=== PATIENT | male | born 1965 | race Two or more races ===

== ENCOUNTER 2017-05-09 07:57 | Emergency (ER) | payer MEDICAID ==
[~2017-05-09] VITALS: Ht 185.4 cm; Wt 69.0 kg
[~2017-05-09 07:57] MED LIST: GABA-532 PO; HYDR-565 PO; MUPI1OIN8 BOTHNARES; VENL150T3 PO
[2017-05-09 09:40] LABS: BASOPHILS % (AUTO) 0.4 % (0-1); EOSINOPHILS # (AUTO) 0.1 X10'3 (0-0.9); EOSINOPHILS % (AUTO) 1.3 % (0-6); HEMATOCRIT 37.1 % (42.0-52.0); HEMOGLOBIN 12.3 g/dl (14.0-17.9); LYMPHOCYTES # (AUTO) 1.7 X10'3 (1.1-4.8); LYMPHOCYTES % (AUTO) 17.1 % (21-51); MEAN CORPUSCULAR HEMOGLOBIN 29.9 PG (27.0-31.0); MEAN CORPUSCULAR HGB CONC 33.2 % (33.0-36.5); MEAN PLATELET VOLUME 8.3 FL (7.4-10.4); MONOCYTES % (AUTO) 9.8 % (2-12); NEUTROPHILS # (AUTO) 7.2 X10'3 (1.8-7.7); NEUTROPHILS % (AUTO) 71.4 % (42-75); PLATELET COUNT 191 X10'3 (140-440); RED BLOOD COUNT 4.12 X10'6 (4.70-6.10); WHITE BLOOD COUNT 10.1 X10'3 (4.5-11.0)
[2017-05-09] MEDS ORDERED: DOXY100C2 PO (10:17)
[2017-05-09] MEDS ORDERED: TRAM50TA2 PO (10:17)
[2017-05-09 10:45] VITALS: BP 105/73
== END 2017-05-09 11:02 | disposition home or self-care (01) ==
LOC: ER 07:58
DX: L03.115 Cellulitis of right lower limb (principal); M25.571 Pain in right ankle and joints of right foot; R60.9 Edema, unspecified; F15.90 Other stimulant use, unspecified, uncomplicated; Z60.2 Problems related to living alone; Z56.0 Unemployment, unspecified; Z98.890 Other specified postprocedural states; Z88.0 Allergy status to penicillin; Z59.0 Homelessness
CPT/HCPCS: 36415; 73610; 85025; 93971; 99285

== ENCOUNTER 2017-05-14 23:26 | Emergency (ER) | payer MEDICAID ==
[~2017-05-14] VITALS: Ht 190.5 cm; Wt 71.0 kg
[~2017-05-14 23:26] MED LIST changes: +DOXY100C2 PO; +TRAM50TA2 PO
[2017-05-15] MEDS ORDERED: CLIN300C3 PO (00:12)
[2017-05-15 00:22] VITALS: BP 149/96
== END 2017-05-15 00:22 | disposition home or self-care (01) ==
LOC: ER 23:26
DX: L03.115 Cellulitis of right lower limb (principal); G89.29 Other chronic pain; F15.10 Other stimulant abuse, uncomplicated; Z60.2 Problems related to living alone; Z56.0 Unemployment, unspecified; Z88.0 Allergy status to penicillin; Z59.0 Homelessness
CPT/HCPCS: 99283

== ENCOUNTER 2017-07-25 05:52 | Emergency (ER) | payer MEDICAID ==
[~2017-07-25] VITALS: Ht 185.4 cm; Wt 79.5 kg
[~2017-07-25 05:52] MED LIST changes: -DOXY100C2 PO; +LEVO750T21 PO; -TRAM50TA2 PO
[2017-07-25] MEDS ORDERED: naproxen 500mg tablet PO ONE (06:30)
[2017-07-25] MEDS ORDERED: azithromycin 250mg tablet PO ONE (06:30)
[2017-07-25] MEDS ORDERED: AZIT250T PO (06:40)
[2017-07-25 06:47] VITALS: BP 130/66
== END 2017-07-25 06:48 | disposition home or self-care (01) ==
LOC: ER 05:54
DX: J18.9 Pneumonia, unspecified organism (principal); J06.9 Acute upper respiratory infection, unspecified; G89.29 Other chronic pain; F17.200 Nicotine dependence, unspecified, uncomplicated; F15.10 Other stimulant abuse, uncomplicated; F11.10 Opioid abuse, uncomplicated; Z60.2 Problems related to living alone; Z59.0 Homelessness; Z88.0 Allergy status to penicillin; Z79.899 Other long term (current) drug therapy
CPT/HCPCS: 99283

== ENCOUNTER 2017-08-11 14:17 | Emergency (ER) | payer MEDICAID ==
[~2017-08-11] VITALS: Ht 185.4 cm; Wt 70.0 kg
[~2017-08-11 14:17] MED LIST changes: +CEPH-572 PO; -LEVO750T21 PO
[2017-08-11 14:26] VITALS: BP 120/79
== END 2017-08-11 17:31 | disposition left against medical advice (07) ==
LOC: ER 14:18
DX: M79.644 Pain in right finger(s) (principal); Z53.21 Procedure and treatment not carried out due to patient leaving prior to being seen by health care provider

== ENCOUNTER 2017-12-30 01:38 | Emergency (ER) | payer MEDICAID ==
[~2017-12-30] VITALS: Ht 185.4 cm; Wt 71.7 kg
[~2017-12-30 01:38] MED LIST changes: -CEPH-572 PO
[2017-12-30 01:44] VITALS: BP 116/82
== END 2017-12-30 02:24 | disposition home or self-care (01) ==
LOC: ER 01:38
DX: R42 Dizziness and giddiness (principal); G89.29 Other chronic pain; F15.90 Other stimulant use, unspecified, uncomplicated; F11.90 Opioid use, unspecified, uncomplicated; Z88.0 Allergy status to penicillin; Z79.899 Other long term (current) drug therapy; Z60.2 Problems related to living alone; Z59.0 Homelessness
CPT/HCPCS: 99281

== ENCOUNTER 2018-01-20 08:06 | Emergency (ER) | payer MEDICAID ==
[~2018-01-20] VITALS: Ht 185.4 cm; Wt 68.0 kg
[~2018-01-20 08:06] MED LIST changes: +HYDR-4353 PO; -HYDR-565 PO
[2018-01-20] MEDS ORDERED: LORazepam 2 mg/ml vial IV ONE (08:20)
[2018-01-20] MEDS ORDERED: normal saline 1000ML IV soln IVB ONE (08:20)
[2018-01-20] MEDS ORDERED: LORazepam 2 mg/ml vial IM ONE (08:35)
[2018-01-20 08:57] LABS: HEMATOCRIT 38.8 % (42.0-52.0); HEMOGLOBIN 13.1 g/dl (14.0-17.9); MEAN CORPUSCULAR HEMOGLOBIN 30.5 PG (27.0-31.0); MEAN CORPUSCULAR HGB CONC 33.8 % (33.0-36.5); MEAN CORPUSCULAR VOLUME 90.2 FL (78-98); MEAN PLATELET VOLUME 8.9 FL (7.4-10.4); PLATELET COUNT 221 X10'3 (140-440); RED CELL DISTRIBUTION WIDTH 13.5 % (11.5-14.5); WHITE BLOOD COUNT 15.9 X10'3 (4.5-11.0)
[2018-01-20 09:06] LABS: ALANINE AMINOTRANSFERASE 34 U/L (12-78); ALBUMIN 3.3 G/DL (3.4-5.0); ALBUMIN/GLOBULIN RATIO 0.7 (1.1-1.5); ALKALINE PHOSPHATASE 65 IU/L (46-116); ANION GAP 13 (8-16); ASPARTATE AMINO TRANSFERASE 23 U/L (10-37); BILIRUBIN,TOTAL 0.8 MG/DL (0.1-1.0); BLOOD UREA NITROGEN 24 MG/DL (7-18); BUN/CREATININE RATIO 26.7 (5.4-32.0); CALCIUM 9.1 MG/DL (8.5-10.1); CHLORIDE 104 MMOL/L (99-107); ETHANOL < 0.010 GM/DL (0.0-0.010); GLUCOSE 107 MG/DL (70-104); POTASSIUM 4.6 MMOL/L (3.5-5.1); SODIUM 142 MMOL/L (135-145); TOTAL CARBON DIOXIDE 25.2 MMOL/L (24-32); TOTAL PROTEIN 8.2 G/DL (6.4-8.2); eGFR 88 ML/MIN
[2018-01-20 09:26] LABS: CLARITY,URINE CLEAR (Clear); COLOR,URINE YELLOW (Yellow); GLUCOSE, URINE NEGATIVE (Neg); KETONES,URINE 15 mg/dl (Neg); LEUKOCYTE ESTERASE ,URINE NEGATIVE (Neg); NITRITES, URINE NEGATIVE (Neg); OCCULT BLOOD,URINE NEGATIVE (Neg); PROTEIN,URINE TRACE mg/dl (Neg)
[2018-01-20 09:32] LABS: URINE AMPHETAMINE SCREEN POSITIVE (Neg); URINE BARBITUATE SCREEN NEGATIVE (Neg); URINE BENZODIAZEPINES SCREEN NEGATIVE (Neg); URINE CANNABINOID SCREEN POSITIVE (Neg); URINE COCAINE SCREEN NEGATIVE (Neg); URINE METHADONE SCREEN NEGATIVE (Neg); URINE OPIATE SCREEN POSITIVE (Neg); URINE PHENCYCLIDINE SCREEN NEGATIVE (Neg)
[2018-01-20 09:46] LABS: UA COLLECTION TYPE FOLEY CATH
[2018-01-20 09:48] LABS: HYALINE CASTS 0-3 /LPF (NEGATIVE); MUCUS STRANDS MODERATE /LPF (Neg); SQUAMOUS EPITHELIAL CELL,UR FEW /LPF (FEW)
[2018-01-20 09:50] LABS: BACTERIA,URINE NONE SEEN /HPF (Neg); CAL OXALATE CRYSTALS FEW /HPF (NEGATIVE); RBC,URINE NONE SEEN /HPF (0-2); SPERM FEW /HPF (NEGATIVE); WBC,URINE 0-4 /HPF (0-4)
[2018-01-20 09:53] LABS: PLATELET ESTIMATE NORMAL; TOTAL CELLS COUNTED 100
[2018-01-20] MEDS ORDERED: normal saline 1000ml 1,000 ML IV ONE ×2 (12:10)
[2018-01-20 14:11] VITALS: BP 140/77
[2018-01-20] MEDS ORDERED: AZIT250T83 PO (14:21)
== END 2018-01-20 14:50 | disposition home or self-care (01) ==
LOC: ER 08:06
DX: J18.9 Pneumonia, unspecified organism (principal); F15.10 Other stimulant abuse, uncomplicated; F11.10 Opioid abuse, uncomplicated; Z86.19 Personal history of other infectious and parasitic diseases; F41.9 Anxiety disorder, unspecified; F32.9 Major depressive disorder, single episode, unspecified; Z59.0 Homelessness; Z88.0 Allergy status to penicillin; Z88.6 Allergy status to analgesic agent; G89.29 Other chronic pain; F10.129 Alcohol abuse with intoxication, unspecified
CPT/HCPCS: 36415; 70450; 71045; 80053; 80305; 80320; 81001; 82140; 85025; 96372; 99285; J2060

== ENCOUNTER 2018-02-11 10:49 | Emergency (ER) | payer MEDICAID ==
[~2018-02-11] VITALS: Ht 185.4 cm; Wt 70.0 kg
[2018-02-11 10:53] VITALS: BP 112/75
[2018-02-11] MEDS ORDERED: LIDOcaine 5% patch TP ONE (11:25)
[2018-02-11] MEDS ORDERED: ketorolac trometh inj. 60 MG/2 ML VIAL IM ONE (11:25)
[2018-02-11] MEDS ORDERED: acetaminophen 325mg tablet PO ONE (11:25)
[2018-02-11] MEDS ORDERED: ACET-812 PO (11:28)
[2018-02-11] MEDS ORDERED: MELO-100 PO (11:28)
[2018-02-11] MEDS ORDERED: CYCL-1 PO (11:28)
[2018-02-11] MEDS ORDERED: LIDO700A32 TOP (11:28)
== END 2018-02-11 11:46 | disposition home or self-care (01) ==
LOC: ER 10:50
DX: S39.012A Strain of muscle, fascia and tendon of lower back, initial encounter (principal); M19.90 Unspecified osteoarthritis, unspecified site; F15.90 Other stimulant use, unspecified, uncomplicated; F11.90 Opioid use, unspecified, uncomplicated; G89.29 Other chronic pain; Z59.0 Homelessness; Z98.890 Other specified postprocedural states; Z88.6 Allergy status to analgesic agent; Z88.0 Allergy status to penicillin; Z79.899 Other long term (current) drug therapy; W05.0XXA Fall from non-moving wheelchair, initial encounter; Y93.89 Activity, other specified; Y92.89 Other specified places as the place of occurrence of the external cause; Y99.9 Unspecified external cause status
CPT/HCPCS: 99283; J1885

== ENCOUNTER 2018-03-09 16:45 | Emergency (ER) | payer MEDICAID ==
[~2018-03-09] VITALS: Ht 177.8 cm; Wt 75.0 kg
[~2018-03-09 16:45] MED LIST changes: +ACET-812 PO; +CYCL-1 PO; +LIDO700A32 TOP; +MELO-100 PO
[2018-03-09] MEDS ORDERED: normal saline 1000ML IV soln IV ONE (21:45)
[2018-03-09 22:21] LABS: BASOPHILS # (AUTO) 0.1 X10'3 (0-0.2); EOSINOPHILS # (AUTO) 0.2 X10'3 (0-0.9); EOSINOPHILS % (AUTO) 1.6 % (0-6); HEMATOCRIT 41.7 % (42.0-52.0); HEMOGLOBIN 13.9 g/dl (14.0-17.9); LYMPHOCYTES # (AUTO) 1.2 X10'3 (1.1-4.8); LYMPHOCYTES % (AUTO) 9.9 % (21-51); MEAN CORPUSCULAR HEMOGLOBIN 29.9 PG (27.0-31.0); MEAN CORPUSCULAR HGB CONC 33.3 % (33.0-36.5); MEAN CORPUSCULAR VOLUME 89.7 FL (78-98); MEAN PLATELET VOLUME 8.6 FL (7.4-10.4); MONOCYTES # (AUTO) 0.7 X10'3 (0-0.9); MONOCYTES % (AUTO) 5.8 % (2-12); NEUTROPHILS # (AUTO) 9.9 X10'3 (1.8-7.7); NEUTROPHILS % (AUTO) 81.7 % (42-75); PLATELET COUNT 219 X10'3 (140-440); RED BLOOD COUNT 4.65 X10'6 (4.70-6.10); RED CELL DISTRIBUTION WIDTH 14.4 % (11.5-14.5); WHITE BLOOD COUNT 12.1 X10'3 (4.5-11.0)
[2018-03-09 22:35] LABS: ALANINE AMINOTRANSFERASE 68 U/L (12-78); ALBUMIN 3.6 G/DL (3.4-5.0); ALBUMIN/GLOBULIN RATIO 0.8 (1.1-1.5); ALKALINE PHOSPHATASE 82 IU/L (46-116); ANION GAP 13 (8-16); ASPARTATE AMINO TRANSFERASE 56 U/L (10-37); BILIRUBIN,TOTAL 0.7 MG/DL (0.1-1.0); BLOOD UREA NITROGEN 22 MG/DL (7-18); BUN/CREATININE RATIO 20.8 (5.4-32.0); CALCIUM 9.3 MG/DL (8.5-10.1); CHLORIDE 99 MMOL/L (99-107); CREATININE 1.06 MG/DL (0.60-1.10); GLUCOSE 73 MG/DL (70-104); MAGNESIUM 1.9 MG/DL (1.5-2.4); POTASSIUM 4.3 MMOL/L (3.5-5.1); SODIUM 136 MMOL/L (135-145); TOTAL CARBON DIOXIDE 23.6 MMOL/L (24-32); eGFR 73 ML/MIN
[2018-03-09 22:52] LABS: CLARITY,URINE SLIGHTLY CLOUDY (Clear); COLOR,URINE YELLOW (Yellow); GLUCOSE, URINE NEGATIVE (Neg); KETONES,URINE 40 mg/dl (Neg); LEUKOCYTE ESTERASE ,URINE NEGATIVE (Neg); NITRITES, URINE NEGATIVE (Neg); OCCULT BLOOD,URINE TRACE-INTACT (Neg); PH,URINE 5.5 (4.8-8.0); PROTEIN,URINE TRACE mg/dl (Neg); UA COLLECTION TYPE CLN CATCH MIDSTREAM; UROBILINOGEN,URINE 0.2 E.U/dL (0.2-1.0)
[2018-03-09 23:03] LABS: URINE AMPHETAMINE SCREEN POSITIVE (Neg); URINE BARBITUATE SCREEN NEGATIVE (Neg); URINE BENZODIAZEPINES SCREEN NEGATIVE (Neg); URINE CANNABINOID SCREEN NEGATIVE (Neg); URINE COCAINE SCREEN NEGATIVE (Neg); URINE METHADONE SCREEN NEGATIVE (Neg); URINE OPIATE SCREEN POSITIVE (Neg); URINE PHENCYCLIDINE SCREEN NEGATIVE (Neg)
[2018-03-09 23:09] LABS: BACTERIA,URINE 1+ /HPF (Neg); RBC,URINE NONE SEEN /HPF (0-2)
[2018-03-09 23:10] LABS: AMORPHOUS URATES 2+; COARSE GRANULAR CAST 0-3 /LPF (NEGATIVE); HYALINE CASTS 0-3 /LPF (NEGATIVE); SQUAMOUS EPITHELIAL CELL,UR MODERATE /LPF (FEW)
[2018-03-09 23:11] LABS: WBC CASTS 0-3 /LPF (NEGATIVE)
[2018-03-09 23:26] VITALS: BP 116/69
== END 2018-03-09 23:28 | disposition home or self-care (01) ==
LOC: ER 16:46
DX: F10.129 Alcohol abuse with intoxication, unspecified (principal); F15.10 Other stimulant abuse, uncomplicated; F11.90 Opioid use, unspecified, uncomplicated; M19.90 Unspecified osteoarthritis, unspecified site; G89.29 Other chronic pain; Z59.0 Homelessness; Z98.890 Other specified postprocedural states; Z88.6 Allergy status to analgesic agent; Z88.0 Allergy status to penicillin; Z79.899 Other long term (current) drug therapy; Y90.9 Presence of alcohol in blood, level not specified
CPT/HCPCS: 36415; 71045; 80053; 80305; 81001; 83605; 83735; 84145; 85025; 87040; 87088; 93005; 99284; J7030

== ENCOUNTER 2018-04-10 16:49 | Emergency (ER) | payer MEDICAID ==
[~2018-04-10] VITALS: Ht 185.4 cm; Wt 79.0 kg
[~2018-04-10 16:49] MED LIST changes: -ACET-812 PO; -CYCL-1 PO; +HYDR-3686 PO; -HYDR-4353 PO; +LEVO750T21 PO; -LIDO700A32 TOP; -MELO-100 PO; -MUPI1OIN8 BOTHNARES; +NAPR375T5 PO; +PROP20TA6 PO; +SULF1TAB48 PO; -VENL150T3 PO
[2018-04-10] MEDS ORDERED: normal saline 1000ML IV soln IVB ONE (17:05)
[2018-04-10 17:33] LABS: BASOPHILS % (AUTO) 0.3 % (0-1); EOSINOPHILS # (AUTO) 0.1 X10'3 (0-0.9); EOSINOPHILS % (AUTO) 1.2 % (0-6); HEMATOCRIT 37.8 % (42.0-52.0); HEMOGLOBIN 12.3 g/dl (14.0-17.9); LYMPHOCYTES # (AUTO) 1.5 X10'3 (1.1-4.8); LYMPHOCYTES % (AUTO) 20.3 % (21-51); MEAN CORPUSCULAR HEMOGLOBIN 29.1 PG (27.0-31.0); MEAN CORPUSCULAR HGB CONC 32.6 % (33.0-36.5); MEAN CORPUSCULAR VOLUME 89.5 FL (78-98); MEAN PLATELET VOLUME 7.7 FL (7.4-10.4); MONOCYTES % (AUTO) 13.4 % (2-12); NEUTROPHILS # (AUTO) 4.8 X10'3 (1.8-7.7); NEUTROPHILS % (AUTO) 64.8 % (42-75); PLATELET COUNT 286 X10'3 (140-440); RED BLOOD COUNT 4.22 X10'6 (4.70-6.10); RED CELL DISTRIBUTION WIDTH 14.1 % (11.5-14.5); WHITE BLOOD COUNT 7.5 X10'3 (4.5-11.0)
[2018-04-10 17:46] LABS: INR 1.1 INR; PARTIAL THROMBOPLASTIN TIME 29 SECONDS (22-32); PROTHROMBIN TIME 11.3 SECONDS (9.0-12.0)
[2018-04-10 17:47] LABS: ALANINE AMINOTRANSFERASE 30 U/L (12-78); ALBUMIN 2.4 G/DL (3.4-5.0); ALBUMIN/GLOBULIN RATIO 0.5 (1.1-1.5); ALKALINE PHOSPHATASE 53 IU/L (46-116); ANION GAP 11 (8-16); ASPARTATE AMINO TRANSFERASE 26 U/L (10-37); BILIRUBIN,TOTAL 0.2 MG/DL (0.1-1.0); BLOOD UREA NITROGEN 14 MG/DL (7-18); BUN/CREATININE RATIO 19.2 (5.4-32.0); CALCIUM 7.9 MG/DL (8.5-10.1); CHLORIDE 105 MMOL/L (99-107); CREATININE 0.73 MG/DL (0.60-1.10); GLUCOSE 100 MG/DL (70-104); MAGNESIUM 1.5 MG/DL (1.5-2.4); POTASSIUM 3.5 MMOL/L (3.5-5.1); SODIUM 140 MMOL/L (135-145); TOTAL CARBON DIOXIDE 23.6 MMOL/L (24-32); TOTAL PROTEIN 6.8 G/DL (6.4-8.2); eGFR > 90 ML/MIN
[2018-04-10] MEDS ORDERED: LEVO500T2 PO (18:16)
[2018-04-10 18:33] VITALS: BP 96/69
== END 2018-04-10 18:33 | disposition home or self-care (01) ==
LOC: ER 16:50
DX: E86.0 Dehydration (principal); F15.90 Other stimulant use, unspecified, uncomplicated; F11.90 Opioid use, unspecified, uncomplicated; M19.90 Unspecified osteoarthritis, unspecified site; G89.29 Other chronic pain; Z59.0 Homelessness; Z98.890 Other specified postprocedural states; Z88.6 Allergy status to analgesic agent; Z88.0 Allergy status to penicillin; Z79.899 Other long term (current) drug therapy; Z87.01 Personal history of pneumonia (recurrent)
CPT/HCPCS: 36415; 71045; 80053; 83605; 83735; 84145; 85025; 85610; 85730; 87040; 93005; 99284; J7030

== ENCOUNTER 2018-06-03 17:12 | Emergency (ER) | payer MEDICAID ==
[~2018-06-03] VITALS: Ht 185.4 cm; Wt 72.7 kg
[~2018-06-03 17:12] MED LIST changes: -LEVO750T21 PO; -PROP20TA6 PO; -SULF1TAB48 PO
[2018-06-03 18:18] LABS: EOSINOPHILS % (AUTO) 0.1 % (0-6); RED CELL DISTRIBUTION WIDTH 13.9 % (11.5-14.5)
[2018-06-03 18:26] LABS: ALANINE AMINOTRANSFERASE 34 U/L (12-78); ALBUMIN 2.9 G/DL (3.4-5.0); ALBUMIN/GLOBULIN RATIO 0.6 (1.1-1.5); ALKALINE PHOSPHATASE 75 IU/L (46-116); ANION GAP 9 (8-16); ASPARTATE AMINO TRANSFERASE 35 U/L (10-37); BILIRUBIN,TOTAL 0.5 MG/DL (0.1-1.0); BLOOD UREA NITROGEN 19 MG/DL (7-18); BUN/CREATININE RATIO 20.9 (5.4-32.0); CALCIUM 8.9 MG/DL (8.5-10.1); CHLORIDE 101 MMOL/L (99-107); CREATININE 0.91 MG/DL (0.60-1.10); GLUCOSE 122 MG/DL (70-104); POTASSIUM 3.9 MMOL/L (3.5-5.1); SODIUM 137 MMOL/L (135-145); TOTAL CARBON DIOXIDE 26.7 MMOL/L (24-32); TOTAL PROTEIN 8.1 G/DL (6.4-8.2); eGFR 87 ML/MIN
[2018-06-03 18:39] LABS: BASOPHILS # (AUTO) 0.1 X10'3 (0-0.2); BASOPHILS % (AUTO) 0.5 % (0-1); HEMATOCRIT 39.4 % (42.0-52.0); HEMOGLOBIN 12.5 g/dl (14.0-17.9); LYMPHOCYTES % (AUTO) 10.7 % (21-51); MEAN CORPUSCULAR HEMOGLOBIN 27.9 PG (27.0-31.0); MEAN CORPUSCULAR HGB CONC 31.7 g/dL (33.0-36.5); MEAN CORPUSCULAR VOLUME 88.1 FL (78-98); MEAN PLATELET VOLUME 8.8 FL (7.4-10.4); MONOCYTES # (AUTO) 1.3 X10'3 (0-0.9); MONOCYTES % (AUTO) 6.9 % (2-12); NEUTROPHILS # (AUTO) 15.2 X10'3 (1.8-7.7); NEUTROPHILS % (AUTO) 81.8 % (42-75); PLATELET COUNT 247 X10'3 (140-440); RED BLOOD COUNT 4.47 X10'6 (4.70-6.10); WHITE BLOOD COUNT 18.6 X10'3 (4.5-11.0)
[2018-06-03 19:21] LABS: TOTAL CELLS COUNTED 100
[2018-06-03 19:22] LABS: PLATELET ESTIMATE NORMAL
[2018-06-03] MEDS ORDERED: normal saline 1000ML IV soln IVB ONE (22:05)
[2018-06-03] MEDS ORDERED: levoFLOXACIN-Levaquin 750MG/D5 150 ML IV ONE (22:05)
[2018-06-03] MEDS ORDERED: CefTRIAXone 2gm/D5W 50ml 50 ML IV ONE (22:15)
[2018-06-03] MEDS ORDERED: azithromycin/NS 500mg/250ml 250 ML IV ONE (22:15)
[2018-06-03] MEDS ORDERED: acetaminophen 325mg tablet PO ONE (23:55)
[2018-06-04] MEDS ORDERED: normal saline 1000ml 1,000 ML IV SCH (02:44)
[2018-06-04] MEDS ORDERED: magnesium hydroxide 30ml (MOM) UD suspension PO PRN (02:45)
[2018-06-04] MEDS ORDERED: ondansetron/PF 4mg/2ml inj IV PRN (02:45)
[2018-06-04] MEDS ORDERED: mag hydrox/Alum hydrox/simeth 30ml oral suspension PO PRN (02:45)
[2018-06-04] MEDS ORDERED: acetaminophen 325mg tablet PO PRN (02:45)
--- NOTE | 2018-06-04 03:04 | NUR ---
PER MD PT WAS WAS POSITITVE FOR MRSA IN THE [place] 12/07/16. CONTACT PRECAUTIONS POSTED AND PPE CART AVAILABLE AT DOOR TO ROOM
[2018-06-04 06:30] VITALS: BP 119/77
--- NOTE | 2018-06-04 07:32 | NUR ---
pt wants to leave [facility], paged dr steiner
--- NOTE | 2018-06-04 07:54 | NUR ---
re-paged dr steiner, pt getting anxious wants to leave.
[2018-06-04] MEDS ORDERED: heparin, porcine 5000 units/ml vial SQ SCH (08:00)
--- NOTE | 2018-06-04 08:17 | NUR ---
pt left [facility] signed form, dr steiner was made aware but did not sign paperwork.
[2018-06-04] MEDS ORDERED: vancomycin/NS 1 GM ADD-VANTAGE 250 ML IV SCH (12:00)
[2018-06-04] MEDS ORDERED: CefTRIAXone/D5W-Rocephin 1gm 50 ML IV SCH (20:00)
[2018-06-04] MEDS ORDERED: azithromycin 250mg tablet PO SCH (22:00)
[2018-06-05] MEDS ORDERED: VANCOMYCIN LEVEL IV NR (03:30)
== END 2018-06-04 08:20 | disposition home or self-care (01) ==
LOC: ER 17:12 → ED HOLD 06-04 02:44 → UNDOADMIN 06-04 02:44 → UNDODISIN 06-04 08:21
DX: J18.9 Pneumonia, unspecified organism (principal); F15.10 Other stimulant abuse, uncomplicated; F17.210 Nicotine dependence, cigarettes, uncomplicated; M19.90 Unspecified osteoarthritis, unspecified site; G89.29 Other chronic pain; F11.90 Opioid use, unspecified, uncomplicated; Z59.0 Homelessness; Z98.890 Other specified postprocedural states; Z88.6 Allergy status to analgesic agent; Z88.0 Allergy status to penicillin; Z79.899 Other long term (current) drug therapy; Z86.19 Personal history of other infectious and parasitic diseases
CPT/HCPCS: 36415; 71046; 71250; 80053; 83605; 85025; 87040; 87502; 87503; 96365; 96367; 99284; J0456; J0696; J3370; J7030; 99285

== ENCOUNTER 2018-06-29 19:32 | Emergency (ER) | payer MEDICAID ==
[~2018-06-29] VITALS: Ht 185.4 cm; Wt 80.0 kg
[2018-06-29 19:53] VITALS: BP 116/79
[2018-06-29] MEDS ORDERED: CLOT12CR TOP (20:53)
--- NOTE | 2018-06-29 21:12 | NUR ---
PT SEEN AND DC'D BY PROVIDER
== END 2018-06-29 21:11 | disposition home or self-care (01) ==
LOC: ER 19:32
DX: R21 Rash and other nonspecific skin eruption (principal); M25.561 Pain in right knee; M19.90 Unspecified osteoarthritis, unspecified site; G89.29 Other chronic pain; F15.90 Other stimulant use, unspecified, uncomplicated; F11.90 Opioid use, unspecified, uncomplicated; Z88.0 Allergy status to penicillin; Z88.8 Allergy status to other drugs, medicaments and biological substances; Z79.899 Other long term (current) drug therapy; Z56.0 Unemployment, unspecified; Z60.2 Problems related to living alone
CPT/HCPCS: 99282

== ENCOUNTER 2018-07-01 07:15 | Emergency (ER) | payer MEDICAID ==
[~2018-07-01] VITALS: Ht 185.4 cm; Wt 72.7 kg
[~2018-07-01 07:15] MED LIST changes: +CLOT12CR TOP; -GABA-532 PO; -HYDR-3686 PO; -NAPR375T5 PO
[2018-07-01 07:21] VITALS: BP 139/80
--- NOTE | 2018-07-01 07:35 | NUR ---
Dr Mulligan in with patient at this time.
--- NOTE | 2018-07-01 07:40 | NUR ---
Patient has noticeable right leg limp.
--- NOTE | 2018-07-01 07:42 | NUR ---
RN gave the patient a sandwich and a bus pass at this time.
== END 2018-07-01 07:40 | disposition home or self-care (01) ==
LOC: ER 07:16
DX: M25.561 Pain in right knee (principal); G89.29 Other chronic pain; M19.90 Unspecified osteoarthritis, unspecified site; F15.90 Other stimulant use, unspecified, uncomplicated; F14.90 Cocaine use, unspecified, uncomplicated; Z86.19 Personal history of other infectious and parasitic diseases; Z56.0 Unemployment, unspecified; Z60.2 Problems related to living alone; Z59.0 Homelessness; Z79.82 Long term (current) use of aspirin; Z88.0 Allergy status to penicillin; Z79.899 Other long term (current) drug therapy
CPT/HCPCS: 99281

== ENCOUNTER 2018-07-08 18:16 | Emergency (ER) | payer MEDICAID ==
[~2018-07-08] VITALS: Ht 185.4 cm; Wt 72.7 kg
[2018-07-08 20:18] VITALS: BP 125/84
== END 2018-07-08 20:31 | disposition home or self-care (01) ==
LOC: ER 18:17
DX: M25.561 Pain in right knee (principal); G89.29 Other chronic pain; M19.90 Unspecified osteoarthritis, unspecified site; F15.90 Other stimulant use, unspecified, uncomplicated; F11.90 Opioid use, unspecified, uncomplicated; Z56.0 Unemployment, unspecified; Z59.0 Homelessness; Z88.6 Allergy status to analgesic agent; Z88.0 Allergy status to penicillin
CPT/HCPCS: 99281

== ENCOUNTER 2018-12-25 23:33 | Emergency (ER) | payer MEDICAID ==
[~2018-12-25] VITALS: Ht 180.3 cm; Wt 76.5 kg
[~2018-12-25 23:33] MED LIST changes: -CLOT12CR TOP; +UNABLE TO OBTAIN
[2018-12-26] MEDS ORDERED: bacitracin 15gm ointment TP ONE (00:10)
[2018-12-26 00:26] VITALS: BP 122/81
== END 2018-12-26 00:30 | disposition home or self-care (01) ==
LOC: ER 23:34
DX: S30.813A Abrasion of scrotum and testes, initial encounter (principal); L98.8 Other specified disorders of the skin and subcutaneous tissue; M19.90 Unspecified osteoarthritis, unspecified site; F41.9 Anxiety disorder, unspecified; F32.9 Major depressive disorder, single episode, unspecified; F15.90 Other stimulant use, unspecified, uncomplicated; F11.90 Opioid use, unspecified, uncomplicated; Z86.19 Personal history of other infectious and parasitic diseases; Z60.2 Problems related to living alone; Z59.0 Homelessness; Z56.0 Unemployment, unspecified; Z98.890 Other specified postprocedural states; Z88.6 Allergy status to analgesic agent; Z88.0 Allergy status to penicillin; X58.XXXA Exposure to other specified factors, initial encounter; Y93.89 Activity, other specified; Y92.89 Other specified places as the place of occurrence of the external cause; Y99.8 Other external cause status
CPT/HCPCS: 99282